=== PATIENT | female | born 1945 | race Caucasian/White ===

== ENCOUNTER 2017-01-19 14:27 | Emergency (ER) | payer OTHER ==
[2017-01-19 14:41] VITALS: BP 173/79; PULSE 71; TEMP 98.3; BMI 30.9
--- NOTE | 2017-01-19 14:58 | PDOC ---
History of Present Illness - History of Present Illness Initial Comments: 01/19/17 15:03 The patient is a 71 year old female, with no significant past medical history, who presents to the emergency department with pain to her left ankle and knee since falling into her car 3 days ago. She states she was stepping into her car and tripped, hitting her left ascencio, knee, and ankle. The patient reports her ankle pain is anterior and radiates to the lateral aspect of her ankle. She states her ankle pain is exacerbated with full weight bearing and plantarflexion. The patient states her knee pain is localized to the medial aspect and exacerbated with twisting and bending movements. She states she feels her left knee appears more swollen than her right. She reports having a left medial meniscectomy by Dr. Michelle in 2014. She denies chest pain, shortness of breath, headache and dizziness. She denies fever, chills, nausea, vomit, diarrhea and constipation. She denies dysuria, frequency, urgency and hematuria. Allergies: NKDA Past surgical history: left meniscectomy (2014) Family History: N/A Social history: Pt denies the use of alcohol, tobacco, or illicit drugs. <Bailey Cain - Last Filed: 01/19/17 15:07> - History of Present Illness Initial Comments: 01/19/17 15:01 History as noted Physical reveals a well-developed well-nourished no acute distress cheerful and cooperative. She is ambulating well, full weightbearing without impairment of gait Left ankle: Mild swelling and tenderness over the tibiofibular ligament. No point tenderness malleoli or fifth metatarsal. No deformity. Pulses full. No distal sensory or motor deficits. Left knee: Mild synovial thickening. No deformity, erythema, warmth, or other sign of inflammation. Full range of motion in flexion and extension without limitation. No stress tenderness or laxity MCL, LCL. Lockman negative. No joint space tenderness and negative Isrrael, likely no acute meniscus injury X-ray of the ankle: <Ashu Mulligan - Last Filed: 01/19/17 15:48> - General Chief Complaint: Pain Stated Complaint: LEFT FOOT AND KNEE PAIN Time Seen by Provider: 01/19/17 14:45 Past History <Bailey Cain - Last Filed: 01/19/17 15:07> - Past Medical History Anemia: No Asthma: No Cancer: No Cardiac Disorders: No CVA: No COPD: No CHF: No Dementia: No Diabetes: No GI Disorders: No Disorders: No HTN: No Hypercholesterolemia: No Liver Disease: No Seizures: No Thyroid Disease: No Other medical history: DENIES - Surgical History Abdominal Surgery: No Appendectomy: No Cardiac Surgery: No Cholecystectomy: No Lung Surgery: No Neurologic Surgery: No Orthopedic Surgery: No - Psycho/Social/Smoking Cessation Hx Anxiety: No Suicidal Ideation: No Smoking Status: No Smoking History: Former smoker Have you smoked in the past 12 months: No Number of Cigarettes Smoked Daily: 0 If you are a former smoker, when did you quit?: 1967 Information on smoking cessation initiated: No Hx Alcohol Use: No Drug/Substance Use Hx: No Substance Use Type: None Hx Substance Use Treatment: No <Ashu Mulligan - Last Filed: 01/19/17 15:48> - Past Medical History Allergies/Adverse Reactions: Allergies Allergy/AdvReac Type Severity Reaction Status Date / Time No Known Drug Allergies Allergy Verified 01/19/17 14:27 ENVIRONMENTAL Allergy Mild CONGESTION Uncoded 01/19/17 14:27 Home Medications: Ambulatory Orders Naproxen [Naprosyn] 375 mg PO BID #10 tablet 01/19/17 Review of Systems - Review of Systems Able to Perform ROS?: Yes Comments:: 01/19/17 15:04 CONSTITUTIONAL: Absent: fever, no chills, no fatigue EYES: Absent: visual changes ENT: Absent: ear pain, no sore throat CARDIOVASCULAR: Absent: chest pain, no palpitations RESPIRATORY: Absent: cough, no SOB GI: Absent: abdominal pain, no nausea, no vomiting, no constipation, no diarrhea GENITOURINARY: Absent: dysuria, no frequency, no hematuria MUSCULOSKELETAL: (+) Left ankle and knee pain. Absent: back pain, no myalgia SKIN: Absent: rash NEURO: Absent: headache <Bailey Cain - Last Filed: 01/19/17 15:07> *Physical Exam - Vital Signs Last Vital Signs Temp Pulse Resp BP Pulse Ox 98.3 F 71 20 173/79 98 01/19/17 14:27 01/19/17 14:27 01/19/17 14:27 01/19/17 14:27 01/19/17 14:27 - Physical Exam Comments: 01/19/17 15:06 GENERAL: Well-appearing, well-nourished. No apparent distress. HEENT: Normocephalic, atraumatic. PERRL, EOM intact. CARDIOVASCULAR: Normal S1, S2. Regular rate and rhythm. PULMONARY: Clear to auscultation bilaterally. ABDOMEN: Soft, non-distended, non-tender. EXTREMITIES: (+) Left ankle: Mild swelling and tenderness over the tibiofibular ligament. No point tenderness malleoli or fifth metatarsal. No deformity. Pulses full. No distal sensory or motor deficits. (+) Left knee: Mild synovial thickening. No deformity, erythema, warmth, or other sign of inflammation. Full range of motion in flexion and extension without limitation. No stress tenderness or laxity MCL, LCL. Iza negative. No joint space tenderness and negative Isrrael, likely no acute meniscus injury SKIN: Warm, dry. No rash NEUROLOGICAL: No focal neurological deficits. <Bailey Cain - Last Filed: 01/19/17 15:07> - Vital Signs Last Vital Signs Temp Pulse Resp BP Pulse Ox 98.3 F 71 20 173/79 98 01/19/17 14:27 01/19/17 14:27 01/19/17 14:27 01/19/17 14:27 01/19/17 14:27 <Ashu Mulligan - Last Filed: 01/19/17 15:48> Medical Decision Making - Medical Decision Making 01/19/17 15:35 X-ray of the ankle reveals mild osteoporosis, mild to moderate soft tissue swelling of the lateral ankle ligaments, no acute fracture, and the ankle mortise is preserved. The fifth metatarsal is visualized and normal. Aircast applied and patient is ambulating well. She will follow-up with orthopedist as directed. <Ashu Mulligan - Last Filed: 01/19/17 15:48> *DC/Admit/Observation/Transfer - Attestations Scribe Attestion: 01/19/17 15:07 Documentation prepared by Bailey Cain, acting as biomedical electronics technician for Ashu Baez MD <Bailey Cain - Last Filed: 04/12/17 15:07> - Discharge Dispostion Admit: No <Ashu Mulligan - Last Filed: 01/19/17 15:48> Diagnosis at time of Disposition: Ankle sprain Qualifiers: Encounter type: initial encounter Involved ligament of ankle: tibiofibular ligament Laterality: left Qualified Code(s): S93.432A - Sprain of tibiofibular ligament of left ankle, initial encounter - Discharge Dispostion Disposition: HOME Condition at time of disposition: Stable - Prescriptions Prescriptions: Naproxen [Naprosyn] 375 mg PO BID #10 tablet - Referrals Referrals: Nino Buchanan [Non Staff, Medical] - 1 week Orlando Olson MD [Staff Physician] - 1 week - Patient Instructions Printed Discharge Instructions: DI for Ankle Sprain Additional Instructions: Rest ice and elevate. Limited weightbearing. Use air cast for support while walking See your orthopedist if pain or swelling persists one week. - Post Discharge Activity Work/School Note: Back to Work
== END 2017-01-19 15:53 | disposition home or self-care (01) ==
LOC: FER 14:27
PROC: 2W3TX1Z Immobilization of Left Foot using Splint (ICD-10-PCS; principal; 2017-01-19)
DX: S93.432A Sprain of tibiofibular ligament of left ankle, initial encounter (principal); Z87.891 Personal history of nicotine dependence; W17.89XA Other fall from one level to another, initial encounter; Y93.89 Activity, other specified; Y92.410 Unspecified street and highway as the place of occurrence of the external cause
CPT/HCPCS: 29515; 73610-TC-LT; 99283-25

== ENCOUNTER 2017-06-05 16:44 | Emergency (ER) | payer OTHER ==
[2017-06-05 17:00] VITALS: BP 159/77; PULSE 63; TEMP 98.2; BMI 30.9
--- NOTE | 2017-06-05 17:05 | PDOC ---
History of Present Illness - General History Source: Patient, Old Records Exam Limitations: No Limitations <Uzma Cole - Last Filed: 06/05/17 17:03> - General History Source: Patient Exam Limitations: No Limitations - History of Present Illness Initial Comments: 06/05/17 17:07 71 y/o F with no PMHx presents to the ED with right hip and leg pain s/p mechanical fall today. Patient was walking and tripped on asphalt, catching her fall on her knees. She reports associated pain on bilateral knees. She also reports associated neck pain and back pain. She reports she was ambulatory immediately after her fall. She took Advil with some relief. She denies any other complaints. <Rosa Reynolds - Last Filed: 06/05/17 17:09> - General Chief Complaint: Injury Stated Complaint: fall, rt hip both knee pain Time Seen by Provider: 06/05/17 16:55 Past History - Past Medical History Anemia: No Asthma: No Cancer: No Cardiac Disorders: No CVA: No COPD: No CHF: No Dementia: No Diabetes: No GI Disorders: No Disorders: No HTN: No Hypercholesterolemia: No Liver Disease: No Seizures: No Thyroid Disease: No - Surgical History Abdominal Surgery: No Appendectomy: No Cardiac Surgery: No Cholecystectomy: No Lung Surgery: No Neurologic Surgery: No Orthopedic Surgery: No - Psycho/Social/Smoking Cessation Hx Anxiety: No Suicidal Ideation: No Smoking Status: No Smoking History: Never smoked Have you smoked in the past 12 months: No Number of Cigarettes Smoked Daily: 0 If you are a former smoker, when did you quit?: 1968 Information on smoking cessation initiated: No Hx Alcohol Use: No Drug/Substance Use Hx: No Substance Use Type: None Hx Substance Use Treatment: No <Uzma Cole - Last Filed: 06/05/17 17:03> <Rosa Reynolds - Last Filed: 06/05/17 17:09> - Past Medical History Allergies/Adverse Reactions: Allergies Allergy/AdvReac Type Severity Reaction Status Date / Time No Known Drug Allergies Allergy Verified 06/05/17 16:45 ENVIRONMENTAL Allergy Mild CONGESTION Uncoded 06/05/17 16:45 Home Medications: Ambulatory Orders NK [No Known Home Medication] 06/05/17 Review of Systems - Review of Systems Comments:: 06/05/17 17:07 GENERAL/CONSTITUTIONAL: No fever or chills. No weakness. HEAD, EYES, EARS, NOSE AND THROAT: No change in vision. No ear pain or discharge. No sore throat. CARDIOVASCULAR: No chest pain or shortness of breath. RESPIRATORY: No cough, wheezing, or hemoptysis. GASTROINTESTINAL: No nausea, vomiting, diarrhea or constipation. GENITOURINARY: No dysuria, frequency, or change in urination. MUSCULOSKELETAL: (+) right hip/leg pain, bilateral knee pain, neck pain, back pain. SKIN: No rash NEUROLOGIC: No headache, vertigo, loss of consciousness, or change in strength/ sensation. ENDOCRINE: No increased thirst. No abnormal weight change. HEMATOLOGIC/LYMPHATIC: No anemia, easy bleeding, or history of blood clots. ALLERGIC/IMMUNOLOGIC: No hives or skin allergy. <Rosa Reynolds - Last Filed: 06/05/17 17:09> *Physical Exam - Vital Signs Last Vital Signs Temp Pulse Resp BP Pulse Ox 98.2 F 63 20 159/77 97 06/05/17 16:45 06/05/17 16:45 06/05/17 16:45 06/05/17 16:45 06/05/17 16:45 <Uzma Cole - Last Filed: 06/05/17 17:03> - Vital Signs Last Vital Signs Temp Pulse Resp BP Pulse Ox 98.2 F 63 20 159/77 97 06/05/17 16:45 06/05/17 16:45 06/05/17 16:45 06/05/17 16:45 06/05/17 16:45 - Physical Exam Comments: 06/05/17 17:07 GENERAL: Awake, alert, and fully oriented, in no acute distress HEAD: No signs of trauma EYES: PERRLA, EOMI, sclera anicteric, conjunctiva clear ENT: Auricles normal inspection, hearing grossly normal, nares patent, oropharynx clear without exudates. Moist mucosa NECK: Normal ROM, supple, no lymphadenopathy, JVD, or masses LUNGS: Breath sounds equal, clear to auscultation bilaterally. No wheezes, and no crackles HEART: Regular rate and rhythm, normal S1 and S2, no murmurs, rubs or gallops ABDOMEN: Soft, nontender, normoactive bowel sounds. No guarding, no rebound. No masses EXTREMITIES: (+) mild tenderness to the right upper gluteal region, no ecchymosis in lower extremities, no c-spine paraspinal tenderness, full ROM of knees, no bony tenderness to palpation. No edema. No clubbing or cyanosis. No cords, erythema. NEUROLOGICAL: Cranial nerves II through XII grossly intact. Normal speech, normal gait SKIN: Warm, Dry, normal turgor, no rashes or lesions noted. <Rosa Reynolds - Last Filed: 06/05/17 17:09> Medical Decision Making - Medical Decision Making 06/05/17 17:03 81-year-old female with no significant past medical history presents to the emergency Department with complaints of right hip pain status post mechanical fall onto her knees today. The patient has no external signs of trauma and is ambulatory with a steady gait. She has full range of motion of both extremities. Differential diagnosis includes but is not limited to: Contusion, sprain/strain. Plan: 1. Recommend NSAIDs and ice 2. Follow-up with primary care physician 3. Return to the emergency department if symptoms persist, worsen, or new symptoms arise. <Uzma Cole - Last Filed: 06/05/17 17:03> *DC/Admit/Observation/Transfer - Discharge Dispostion Admit: No - Attestations Physician Attestion: 06/05/17 17:04 I, Dr. Uzma Cole, attest that the scribes documentation that appears above has been prepared under my direction and personally reviewed by me in its entirety. I confirmed that the note above accurately reflects all work, treatment, procedures, and medical decision-making performed by me. <Uzma Cole - Last Filed: 06/05/17 17:03> - Attestations Scribe Attestion: 06/05/17 17:07 Documentation prepared by Rosa Reynolds, acting as biomedical engineering technician for Uzma Cole MD. <Rosa Reynolds - Last Filed: 06/05/17 17:09> Diagnosis at time of Disposition: Muscle strain, Fall - Discharge Dispostion Disposition: HOME Condition at time of disposition: Stable - Patient Instructions Printed Discharge Instructions: DI for Muscle Strain Additional Instructions: He may take ibuprofen 600-800 mg every 6-8 hours as needed for pain. Apply ice to the areas that hurt for the first 24 hours20 minutes on 20 minutes off. Follow-up with your primary care physician and return to the emergency department if your symptoms persist, worsen, or new symptoms arise.
== END 2017-06-05 17:11 | disposition home or self-care (01) ==
LOC: FER 16:44
DX: T14.8 Other injury of unspecified body region (principal); W01.0XXA Fall on same level from slipping, tripping and stumbling without subsequent striking against object, initial encounter; Y93.89 Activity, other specified; Y92.410 Unspecified street and highway as the place of occurrence of the external cause; Z87.891 Personal history of nicotine dependence
CPT/HCPCS: 99281-25

== ENCOUNTER 2021-09-15 17:15 | Emergency (ER) | payer OTHER ==
[2021-09-15 17:29] VITALS: BP 158/57; PULSE 87; TEMP 97.7
[2021-09-15] MEDS ORDERED: ACETAMINOPHEN 325 MG TABLET (FP) PO ONE (18:08)
[2021-09-15] MEDS ORDERED: ACETAMINOPHEN 325 MG TABLET (FP) ONE (18:20)
== END 2021-09-15 19:15 | disposition left against medical advice (07) ==
LOC: FER 17:15
DX: I63.9 Cerebral infarction, unspecified (principal)
CPT/HCPCS: 70450-TC; 72125-TC; 73110-TC-LT-FY; 73130-TC-LT-FY; 73562-TC-LT-FY; 99285-25